=== PATIENT | female | born 1965 | race Caucasian/White ===

== ENCOUNTER 2025-04-21 23:38 | Emergency (ER) | payer MEDICAID ==
[~2025-04-21] VITALS: Ht 160 cm; Wt 75.0 kg
[2025-04-22 00:13] LABS: PH,URINE DRUG SCREEN 5.5 (5.0-8.0)
[2025-04-22 00:20] LABS: AMPHET/METH SCREEN,URINE NEGATIVE (NEGATIVE); BARBITURATE SCREEN, URINE NEGATIVE (NEGATIVE); CANNABINOID SCREEN,URINE NEGATIVE (NEGATIVE); COCAINE SCREEN,URINE NEGATIVE (NEGATIVE); METHADONE SCREEN, URINE NEGATIVE (NEGATIVE)
[2025-04-22 00:29] LABS: ALCOHOL, URINE DRUG SCREEN NEGATIVE (NEGATIVE)
[2025-04-22] MEDS: ACETAMINOPHEN 500 MG TABLET PO ONE (01:03)
[2025-04-22 01:12] LABS: COVID AG,FIA SOURCE NASAL SWAB
[2025-04-22 01:23] LABS: PLATELET COUNT (AUTO) 206 K/uL (150-450); RED BLOOD CELL COUNT(AUTO) 3.79 MIL/uL (4.00-5.20); RED CELL DISTRIBUTION WIDTH 12.4 % (11.5-14.5); WHITE BLOOD COUNT (AUTO) 4.9 K/uL (4.5-11.0)
[2025-04-22 01:23] LABS: SARS-COV2 (COVID) ANTIGEN,FIA Negative (Negative)
[2025-04-22 01:25] LABS: CALCIUM, TOTAL 9.3 mg/dL (8.8-10.5); CREATININE 0.65 mg/dL (0.60-1.30); GLOMERULAR FILTR. RATE CALC > 60 mL/min (>60); GLUCOSE,RANDOM 102 mg/dL (70-110); SODIUM SERUM 139 mmol/L (136-145); UREA NITROGEN, BLOOD 12 mg/dL (7-18)
[2025-04-22 06:27] VITALS: BP 141/89; PULSE 78; RESP 18; TEMP 98.3; O2SAT 97
== END 2025-04-22 07:00 | disposition home or self-care (01) ==
LOC: EMS 23:38
DX: F20.9 Schizophrenia, unspecified (principal); F41.9 Anxiety disorder, unspecified; E87.6 Hypokalemia; I10 Essential (primary) hypertension; Z59.819 Housing instability, housed unspecified; Z79.899 Other long term (current) drug therapy; Z20.822 Contact with and (suspected) exposure to COVID-19
CPT/HCPCS: 99283; 87426; 80048; 85025; 36415; 80307; G0480